=== PATIENT | female | born 1975 | race Hispanic/Latino ===

== ENCOUNTER 2017-02-27 20:43 | Emergency (ER) | payer MEDICAID ==
[2016-08-29 21:02] VITALS: BMI 27.3
[2017-02-27 21:53] LABS: RBC URINE 26 /hpf (0-3); TRANSITIONAL EPITHIAL < 1 /hpf (0-3); URINE BACTERIA RARE (<OCC); URINE BILIRUBIN NEGATIVE (NEGATIVE); URINE BLOOD 1+ (NEGATIVE); URINE COLOR Yellow (YELLOW); URINE GLUCOSE (UA) NORMAL (Normal); URINE KETONE NEGATIVE (NEGATIVE); URINE LEUKOCYTE ESTERASE NEG Leu/uL (Negative); URINE PROTEIN NEGATIVE (NEGATIVE); URINE UROBILINOGEN NORMAL mg/dL (0.2-1.0); WBC URINE 5 /hpf (0-5)
--- NOTE | 2017-02-28 00:12 | OBHP ---
Datetime: 02/27/2017 22:30 IP Adm Impression: , intrauterine ; No Active Labor IP Admit Plan: Discharge home Admit Comment, IP Provider: 41 y.o. , LMP unsure, PERICO 04/30/17, EGA 31w 1d c/o sharp, consta nt lower abdominal pain x 2 days, pain scale 8/10. No radiation; no precipitating or alleviating fact ors. Too no pain meds. Not had sexual intercourse "for a while" (+) AFM; denies LOF, VB, Ctx. Prena corina care: [facility]: AMA; prev C/S x 4. GCT last visit, 2-3 weeks ago - to receive results next visit = Fr 03/01/17. Denies any other issues P Ob: C/S x 4: 2001, male 10lb 2oz, [facility] 2008, female 9lb 4.5 oz, [facility] 2012, [place]al e 7lb 13 oz[place] [facility] [place], 9lb 1oz, [facility] No GDM in any ; no complications. 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 Denies H/O STIs. Per patient, ectopic pregnancies involved both tubes... "they told me I would never get " PMH: 2001, gallstones; 2008, appendicitis PSH: 1997, open laparotomy x 2 - ectopics. 2002, laparoscopic cholecystectomy; 2008, laparoscopic appendectomy. C/S x 4 NKDA Meds: PNV Soc Hx: (+) tobacco use - currently 1/2 ppd in ; prior to preg, 1 ppd x 19 years. Denies illicit drug or EtOH use. With FOB x 7 years. Lives with her 4 children. Unemployed. Fam Hx: Mother approx age 45 - suicide. Father approx age 60s - pancreatic CA. No other known fam h/o cancer P.E.: as above. Mildly obese, in NAD. Awake, alert, oriented to time, person and place. Pleasant a nd cooperative. - U/A: negative for leuk esterase; 1+ blood Assessment: 41 y.o. [id number], 31w 1d, prev C/S x 4, LAP - no cervical dilatation; no signs of PTL. No signs of UTI; possible renal stone - given blood in urine. Category 1 tracing. Clinically stable. Plan: 1) Discharge home 2) Keep scheduled appointment, Fr 03/01/17 3) Reviewed S/S PTL Pelvic Type - PN: Adequate Extremities - PN: Normal Abdomen - PN: Normal Back - PN: Normal Breast - PN: Not Done Lungs - PN: Normal Heart - PN: Normal Thyroid - PN: Not Done Neurologic - PN: Normal HEENT - PN: Normal General - PN: Normal Presentation-Admit: Vertex FHR - Baseline A Provider: 140 Contraction Comments Provider: none Comments, ACOG Physical Exam: Abdomen: Gravid. Soft; non tender in all quadrants. Healed Pfannensti el, transverse scars. All other systems reviewed and are negative Gestation - Est Wks by US: 31w 1d EGA AdmitDate IP: 31.1 IP Chief Complaint: Maternal discomfort NICHD Variability Prov Fetus A: Moderate 6-25bpm NICHD Accel Fetus A IP Provider: [id number] FHR Category Provider Fetus A: Category I NICHD Decel Fetus A IP Provider: None Dilatation, Provider: 0 Effacement, Provider: 0 Station, Provider: floating Genitourinary Exam: Normal DTRs - PN: Not Done
[2017-02-28 03:46] VITALS: BP 108/74; PULSE 91
== END 2017-02-27 23:44 | disposition home or self-care (01) ==
LOC: C.EROB 20:43
DX: O75.89 Other specified complications of labor and delivery (principal); Z3A.31 31 weeks gestation of pregnancy